=== PATIENT | female | born 1935 | race Caucasian/White ===

== ENCOUNTER 2016-06-02 11:23 | Emergency (ER) | payer MEDICARE, MEDICAID ==
[~2016-06-02] VITALS: Ht 154.9 cm; Wt 70.8 kg
[2016-06-02 11:43] LABS: BASOPHILS # (AUTO) 0.1 /CMM (0.0-0.2); BASOPHILS % (AUTO) 1.2 % (0.0-2.0); DIFF TOTAL % 100 %; EOSINOPHILS # (AUTO) 0.1 /CMM (0.0-0.7); EOSINOPHILS % (AUTO) 1.7 % (0.0-6.0); HEMATOCRIT 39 % (33-45); LYMPHOCYTES # (AUTO) 1.2 /CMM (0.8-4.8); LYMPHOCYTES % (AUTO) 18.9 % (20.0-44.0); MEAN CORPUSCULAR HEMOGLOBIN 30 PG (26.0-33.0); MEAN CORPUSCULAR HGB CONC 34 g/dl (31.0-36.0); MEAN CORPUSCULAR VOLUME 90 fL (82-100); MONOCYTES # (AUTO) 0.6 /CMM (0.1-1.30); MONOCYTES % (AUTO) 9.3 % (2.0-12.0); NEUTROPHILS # (AUTO) 4.5 /CMM (1.8-8.9); NEUTROPHILS % (AUTO) 68.9 % (43.0-81.0); PLATELET COUNT (AUTO) 180 /CMM (150-450); RED BLOOD CELL COUNT(AUTO) 4.32 MIL/uL (4.0-5.2); WHITE BLOOD COUNT (AUTO) 6.5 K/uL (4.3-11.0)
[2016-06-02 11:56] LABS: INR 0.91 (0.87-1.13); PROTHROMBIN TIME 9.8 SECS (9.5-12.7)
[2016-06-02 12:01] LABS: ANION GAP 14 (5-14); CALCIUM, SERUM 9.1 mg/dL (8.5-10.1); CARBON DIOXIDE 24 mmol/L (21-32); CHLORIDE 107 mmol/L (98-107); CREATININE 0.8 mg/dL (0.6-1.3); GLUCOSE 224 mg/dL (74-106); POTASSIUM 3.6 mmol/L (3.5-5.1); SODIUM SERUM 141 mmol/L (136-145); UREA NITROGEN, BLOOD 20 mg/dL (7-18)
[2016-06-02 12:08] LABS: ALANINE AMINOTRANSFERASE 23 U/L (12-78); ALBUMIN 3.5 g/dL (3.4-5.0); ASPARTATE AMINOTRANSFERASE 10 U/L (15-37); BILIRUBIN,DIRECT 0.1 mg/dL (0.0-0.2); BILIRUBIN,TOTAL 0.5 mg/dL (0.2-1.0); INDIRECT BILIRUBIN 0.4 mg/dL (0.0-1.1); TOTAL PROTEIN, SERUM 7.4 g/dL (6.4-8.2); TROPONIN I < 0.017 ng/mL (0.00-0.056)
[2016-06-02] MEDS ORDERED: BENAZEPRIL HCL 10 MG TABLET PO ONE (13:00)
[2016-06-02] MEDS ORDERED: IBUPROFEN 600 MG TABLET PO ONE ×2 (13:00→13:10)
[2016-06-02 13:15] VITALS: BP 158/83
== END 2016-06-02 13:16 | disposition home or self-care (01) ==
LOC: EDBD 11:25 → ER 11:25
DX: S20.219A Contusion of unspecified front wall of thorax, initial encounter (principal); S80.02XA Contusion of left knee, initial encounter; I10 Essential (primary) hypertension; E11.9 Type 2 diabetes mellitus without complications; W19.XXXA Unspecified fall, initial encounter; Y92.89 Other specified places as the place of occurrence of the external cause; Y93.89 Activity, other specified; Y99.8 Other external cause status
CPT/HCPCS: 36415; 71010; 72170; 80048; 80076; 84484; 85025; 85730; 93005; 99285; A4606; Z7610

== ENCOUNTER 2016-10-20 11:06 | Emergency (ER) | payer MEDICARE, MEDICAID ==
[~2016-10-20] VITALS: Ht 160 cm; Wt 63.5 kg
[2016-10-20 11:11] VITALS: BP 136/69
== END 2016-10-20 12:21 | disposition home or self-care (01) ==
LOC: ER 11:07
DX: R05 Cough (principal); I10 Essential (primary) hypertension; E11.9 Type 2 diabetes mellitus without complications; J45.909 Unspecified asthma, uncomplicated
CPT/HCPCS: 71020; 99284; A4606; Z7610

== ENCOUNTER 2019-05-16 21:44 | Emergency (ER) | payer MEDICARE, OTHER ==
[~2019-05-16] VITALS: Ht 157.5 cm; Wt 70.8 kg
--- NOTE | 2019-05-16 22:07 | NUR ---
PATIENT CAME TO ER BED 10 W/ DAUGHTER C/O RIGHT RIBCAGE PAIN AND RIGHT HIP PAIN S/P FALL IN RESTROOM AT HOME. PATIENT LIVES ALONE AND FELL IN THE RESTROOM AFTER FEELING DIZZY. PATIENT DENIES HITTING HER HEAD. NO BRUISING NOTED ON THE RIGHT SIDE OF RIBCAGE AND RIGHT HIP. PATIENT STATES PAIN WHEN BREATHING. AAOX4. NOT IN ANY ACUTE DISTRESS. BREATHING EVENLY AND UNLABORED. NO SOB. CONNECTED TO MONITOR.
[2019-05-16 22:25] LABS: BASOPHILS # (AUTO) 0.1 /CMM (0.0-0.2); EOSINOPHILS % (AUTO) 1.2 % (0.0-6.0); HEMATOCRIT 37 % (33-45); HEMOGLOBIN 12.5 g/dL (11.5-14.8); LYMPHOCYTES # (AUTO) 1.2 /CMM (0.8-4.8); LYMPHOCYTES % (AUTO) 15.7 % (20.0-44.0); MEAN CORPUSCULAR HGB CONC 33 g/dl (31.0-36.0); MEAN CORPUSCULAR VOLUME 93 fL (82-100); MONOCYTES # (AUTO) 0.4 /CMM (0.1-1.30); MONOCYTES % (AUTO) 5.1 % (2.0-12.0); NEUTROPHILS # (AUTO) 5.6 /CMM (1.8-8.9); PLATELET COUNT (AUTO) 147 /CMM (150-450); RED BLOOD CELL COUNT(AUTO) 4.04 MIL/uL (4.0-5.2); WHITE BLOOD COUNT (AUTO) 7.3 K/uL (4.3-11.0)
--- NOTE | 2019-05-16 22:27 | NUR ---
PATIENT GETTING TAKEN FOR XRAY
[2019-05-16] MEDS ORDERED: IV NS 0.9% 500 ML BAG IV ONE (22:30)
[2019-05-16 22:33] LABS: CALCIUM, SERUM 9.3 mg/dL (8.5-10.1); CARBON DIOXIDE 26 mmol/L (21-32); CHLORIDE 104 mmol/L (98-107); CREATININE 1.1 mg/dL (0.6-1.3); GLUCOSE 226 mg/dL (74-106); POTASSIUM 4.2 mmol/L (3.5-5.1); SODIUM SERUM 136 mmol/L (136-145); UREA NITROGEN, BLOOD 40 mg/dL (7-18)
[2019-05-16 22:40] LABS: ALANINE AMINOTRANSFERASE 35 U/L (12-78); ALBUMIN 3.6 g/dL (3.4-5.0); ALKALINE PHOSPHATASE 86 U/L (46-116); ASPARTATE AMINOTRANSFERASE 21 U/L (15-37); BILIRUBIN,DIRECT 0.1 mg/dL (0.0-0.2); BILIRUBIN,TOTAL 0.3 mg/dL (0.2-1.0); TOTAL PROTEIN, SERUM 7.3 g/dL (6.4-8.2)
--- NOTE | 2019-05-16 22:56 | NUR ---
PT RETURNED FROM XRAY.
[2019-05-16] MEDS ORDERED: TRAMADOL HCL 50 MG TABLET ONE (23:59)
[2019-05-17] MEDS ORDERED: TRAMADOL HCL 50 MG TABLET PO ONE
--- NOTE | 2019-05-17 00:10 | NUR ---
IV removed. Catheter intact and site benign. Pressure and 4x4 applied to site. No bleeding noted. Patient discharged to home in stable condition. Written and verbal after care instructions given. Patient verbalizes understanding of instruction.
--- NOTE | 2019-05-17 00:13 | NUR ---
DAUGHTER TAKING PATIENT HOME.
[2019-05-17 00:14] VITALS: BP 133/67
== END 2019-05-17 00:14 | disposition home or self-care (01) ==
LOC: ER 21:47
DX: S20.212A Contusion of left front wall of thorax, initial encounter (principal); S20.211A Contusion of right front wall of thorax, initial encounter; I10 Essential (primary) hypertension; J45.909 Unspecified asthma, uncomplicated; E78.5 Hyperlipidemia, unspecified; E11.9 Type 2 diabetes mellitus without complications; W18.39XA Other fall on same level, initial encounter; Y93.89 Activity, other specified; Y92.89 Other specified places as the place of occurrence of the external cause; Y99.8 Other external cause status
CPT/HCPCS: 36415; 71100; 73502; 80048; 80076; 82962; 84484; 85025; 93005; 99284; J7030

== ENCOUNTER 2019-05-19 15:26 | Inpatient (IN) | payer MEDICARE, MEDICAID ==
[~2019-05-19] VITALS: Ht 165.1 cm; Wt 67.7 kg
[2019-05-19 10:00] VITALS: BP 126/88
--- NOTE | 2019-05-19 15:43 | NUR ---
R sided body pain s/p glf this morning , PT AAOX4, -SOB, NAD NOTED, VSS ,PENDING MD BUCK
[2019-05-19] MEDS ORDERED: HYDROCODONE/APAP 5/325MG 1 EACH TABLET PO ONE (16:00)
[2019-05-19] MEDS ORDERED: HYDROCODONE/APAP 5/325MG 1 EACH TABLET ONE (16:24)
[2019-05-19] MEDS ORDERED: TOLT2CAP PO (17:02)
[2019-05-19] MEDS ORDERED: METO25TA6 PO (17:02)
[2019-05-19] MEDS ORDERED: OMEP1CAP4 PO (17:02)
[2019-05-19] MEDS ORDERED: CLON0.5T23 PO (17:02)
[2019-05-19] MEDS ORDERED: MECL-102 PO (17:02)
[2019-05-19] MEDS ORDERED: TRAM50TA2 PO (17:02)
[2019-05-19] MEDS ORDERED: ESCI10TA PO (17:02)
[2019-05-19] MEDS ORDERED: LOSA100T3 PO (17:02)
[2019-05-19] MEDS ORDERED: OLME1TAB34 PO (17:02)
[2019-05-19] MEDS ORDERED: RANI300C PO (17:02)
[2019-05-19] MEDS ORDERED: CLON0.1T14 PO (17:02)
[2019-05-19] MEDS ORDERED: LEVO50TA8 PO (17:02)
[2019-05-19] MEDS ORDERED: ROSU5TAB PO (17:02)
[2019-05-19] MEDS ORDERED: GLIP5TAB13 PO (17:02)
[2019-05-19 17:04] LABS: BASOPHILS # (AUTO) 0.1 /CMM (0.0-0.2); BASOPHILS % (AUTO) 0.7 % (0.0-2.0); EOSINOPHILS % (AUTO) 1.9 % (0.0-6.0); HEMATOCRIT 39 % (33-45); HEMOGLOBIN 12.9 g/dL (11.5-14.8); LYMPHOCYTES # (AUTO) 1.4 /CMM (0.8-4.8); LYMPHOCYTES % (AUTO) 14.8 % (20.0-44.0); MEAN CORPUSCULAR HGB CONC 33 g/dl (31.0-36.0); MEAN CORPUSCULAR VOLUME 93 fL (82-100); MONOCYTES # (AUTO) 0.7 /CMM (0.1-1.30); MONOCYTES % (AUTO) 7.7 % (2.0-12.0); NEUTROPHILS # (AUTO) 6.9 /CMM (1.8-8.9); NEUTROPHILS % (AUTO) 74.9 % (43.0-81.0); PLATELET COUNT (AUTO) 122 /CMM (150-450); RED BLOOD CELL COUNT(AUTO) 4.17 MIL/uL (4.0-5.2); WHITE BLOOD COUNT (AUTO) 9.2 K/uL (4.3-11.0)
[2019-05-19 17:11] LABS: CALCIUM, SERUM 9.5 mg/dL (8.5-10.1); CREATININE 0.9 mg/dL (0.6-1.3); POTASSIUM 3.8 mmol/L (3.5-5.1)
--- NOTE | 2019-05-19 18:45 | NUR ---
DX AMBULATORY DISFUNCTION
--- NOTE | 2019-05-19 19:15 | NUR ---
WAS ASKED FOR REPORT TO FINISHED BEFORE BEDS GIVEN.
--- NOTE | 2019-05-19 20:15 | NUR ---
BED ASSIGNMENT 312-1
--- NOTE | 2019-05-19 20:20 | NUR ---
report given to to morales for clary pt will be transported to 3rd floor
--- NOTE | 2019-05-19 20:49 | NUR ---
shane collected and sent to lab
--- NOTE | 2019-05-19 20:49 | NUR ---
pt tranposrted to 3rd floor
[2019-05-19 21:00] VITALS: BP_SYST 152; BP_DIAS 71; BP_DIAS 88
--- NOTE | 2019-05-19 21:00 | NUR ---
MS SEAT COVER INSTALLER NOTES Patient arrived onto to unit as med surg with ER staff. She is a/o x3, Japanese speaking knows a little Wolof. She is able to follow commands. No signs of acute distress noted and no current complaints of pain or discomfort. She was given [place] in the ER. Arrived on 2L of O2 via NC and still currently on it. She is bed rest due to right sided pain, able to use bed coppola. IV located on L AC #20 patent and intact. Safety precautions are in place with bed in lowest position, side rails up x2, breaks on, and call light within reach. All belongings were accounted for. Skin assessment was done. Patient was oriented to room. Will continue to monitor.
[2019-05-19] MEDS ORDERED: MAG HYDROX/AL HYDROX/SIMETH 30 ML UDC PO PRN (22:30)
[2019-05-19] MEDS ORDERED: ZOLPIDEM TARTRATE 5 MG TABLET PO PRN (22:30)
[2019-05-19] MEDS ORDERED: ONDANSETRON HCL/PF 4 MG/2 ML VIAL IVP PRN (22:30)
[2019-05-19] MEDS ORDERED: ACETAMINOPHEN 325 MG TABLET PO PRN (22:30)
[2019-05-19] MEDS ORDERED: MAGNESIUM HYDROXIDE 30 ML UDC PO PRN (22:30)
[2019-05-19] MEDS ORDERED: Z GUARD REMEDY 2 OZ OINT TP PRN (22:30)
[2019-05-19] MEDS ORDERED: MORPHINE SULFATE INJ 2 MG/ML DISP.SYRIN IV PRN (22:30)
[2019-05-19] MEDS ORDERED: TRAMADOL HCL 50 MG TABLET PO PRN (23:00)
[2019-05-19] MEDS: ENOXAPARIN SODIUM 40 MG/0.4 ML DISP.SYRIN SQ SCH (23:14)
[2019-05-20] MEDS: IV D5/0.45 NACL 1,000 ML IV PRN ×2 (01:35→17:24)
--- NOTE | 2019-05-20 06:26 | NUR ---
MS RN CLOSING NOTES Patient is currently resting in bed A/O x3, Albanian speaking. She is able to follow commands. On 2L of O2 via NC, breathing even and unlabored. No signs of acute distress noted. IV located on L AC #20 running D5 NS @ 75ml/ hr. Patient was kept clean and dry throughout the night, all needs met. Uses bed coppola. Safety precautions in place with bed in lowest position, locked, breaks on, and call light within reach. Will endorse to oncoming shift about MOUSTAPHA
[2019-05-20 06:47] LABS: BASOPHILS % (AUTO) 0.6 % (0.0-2.0); HEMATOCRIT 36 % (33-45); HEMOGLOBIN 12.4 g/dL (11.5-14.8); LYMPHOCYTES # (AUTO) 1.4 /CMM (0.8-4.8); LYMPHOCYTES % (AUTO) 22.1 % (20.0-44.0); MEAN CORPUSCULAR HGB CONC 34 g/dl (31.0-36.0); MEAN CORPUSCULAR VOLUME 91 fL (82-100); MONOCYTES # (AUTO) 0.6 /CMM (0.1-1.30); MONOCYTES % (AUTO) 9.8 % (2.0-12.0); NEUTROPHILS % (AUTO) 64.5 % (43.0-81.0); PLATELET COUNT (AUTO) 131 /CMM (150-450); WHITE BLOOD COUNT (AUTO) 6.2 K/uL (4.3-11.0)
--- NOTE | 2019-05-20 07:10 | NUR ---
MS RN OPENING NOTES RECEIVED PATIENT IN BED ASLEEP, AROUSABLE TO VERBAL AND TACTILE STIMULI. HOB ELEVATED. NO SOB. ON O2 2L/MIN VIA NC CROW WELL. IV ACCESS SITE INTACT AND PATENT. DENIES ANY C/O PAIN NOR DISCOMFORT AT THIS TIME. BED IN LOWEST POSITION, LOCKED. BED ALARM ON.CALL LIGHT WITHIN REACH. BED SIDERAILS UP X2.
[2019-05-20 07:27] LABS: CALCIUM, SERUM 8.8 mg/dL (8.5-10.1); CREATININE 0.8 mg/dL (0.6-1.3); MAGNESIUM 1.4 mg/dL (1.8-2.4); PHOSPHORUS 3.6 mg/dL (2.5-4.9); POTASSIUM 2.9 mmol/L (3.5-5.1)
[2019-05-20 08:00] VITALS: BP 124/60
[2019-05-20] MEDS: glipiZIDE 5 MG TABLET PO SCH ×3 (08:18→17:22)
[2019-05-20] MEDS: LEVOTHYROXINE SODIUM 25 MCG TABLET PO SCH (08:18)
[2019-05-20] MEDS ORDERED: MECLIZINE HCL 25 MG TABLET PO PRN (09:00)
[2019-05-20] MEDS ORDERED: LOSARTAN POTASSIUM 50 MG TABLET PO SCH (09:00)
[2019-05-20] MEDS: ATORVASTATIN 10 MG TABLET PO SCH (09:05)
[2019-05-20] MEDS: LOSARTAN POTASSIUM 50 MG TABLET PO SCH ×2 (09:05→17:23)
[2019-05-20] MEDS: ESCITALOPRAM OXALATE (10 MG) 10 MG TABLET PO SCH (09:06)
[2019-05-20] MEDS: METOPROLOL TARTRATE 25 MG TABLET PO SCH ×2 (09:06→17:23)
[2019-05-20] MEDS: FAMOTIDINE (20 MG) 20 MG TABLET PO SCH (09:06)
[2019-05-20] MEDS: AMLODIPINE BESYLATE 5 MG TABLET PO SCH (09:10)
[2019-05-20] MEDS: TOLTERODINE 2 MG CAP.SR PO SCH (09:14)
[2019-05-20] MEDS: HYDROCHLOROTHIAZIDE 25 MG TABLET PO SCH (09:14)
[2019-05-20] MEDS: POTASSIUM CHLORIDE 20 MEQ TAB.PRT.SR PO SCH ×3 (10:13→12:55)
[2019-05-20] MEDS: Magnesium 1GM/D5W 100ML PREMIX 100 ML IV SCH ×2 (10:13→11:43)
[2019-05-20 16:00] VITALS: BP 139/79
--- NOTE | 2019-05-20 18:45 | NUR ---
MS RN CLOSING NOTES ALERT AND ORIENTED X1. HOB ELEVATED. NO S/S OF RESPIRATORY DISTRESS. ON ROOM AIR WITH 96% SPO2. LEFT AC # 20 INTACT AND PATENT INFUSING D5 1/2 NS @ 125 ML/HR. . DENIES ANY C/O PAIN NOR DISCOMFORT AT THIS TIME. BED IN LOWEST POSITION, LOCKED. BED ALARM ON.CALL LIGHT WITHIN REACH. BED SIDERAILS UP X2. IN NO APPARENT DISTRESS.
--- NOTE | 2019-05-20 19:20 | NUR ---
RN medsurmicaela opening notes Received Pt from morning nurse. Pt is alert and orientedX2. Pt speaks Polish and able to make needs known. Respiration is normal in room air. No SOB. No nausea and vomiting. Pt denies any pain or discomfort at this time. IV sites at LAC# 20 is clean, intact, patent and infusing well D5 1/2 NS @ 75 ml/hr. Keep HOB elevated. Keep Pt clean, dry, warm and comfortable. Instructed to call. Safety precautions is maintained. Bed at low position, brakes locked, side rails upx3 and call light is within reach. Will continue to monitor.
[2019-05-20 20:00] VITALS: BP 145/70
[2019-05-20 21:24] VITALS: BP 158/60
[2019-05-20] MEDS: clonazePAM 0.5 MG TABLET PO SCH (21:25)
[2019-05-20] MEDS: CLONIDINE HCL 0.1 MG TABLET PO SCH (21:26)
[2019-05-20] MEDS: ENOXAPARIN SODIUM 40 MG/0.4 ML DISP.SYRIN SQ SCH (21:40)
--- NOTE | 2019-05-21 04:00 | NUR ---
RN medsurg notes Pt accidentally removed IV sites on LAC# 20. Inserted new peripheral IV sites at L hand#24 with good blood returned. IV sites is patent, intact, patent and flush without resistance. Pt tolerated well. Will continue to monitor.
[2019-05-21 06:31] LABS: BASOPHILS % (AUTO) 0.7 % (0.0-2.0); EOSINOPHILS % (AUTO) 2.7 % (0.0-6.0); HEMATOCRIT 34 % (33-45); HEMOGLOBIN 11.7 g/dL (11.5-14.8); LYMPHOCYTES # (AUTO) 1.4 /CMM (0.8-4.8); LYMPHOCYTES % (AUTO) 21.3 % (20.0-44.0); MEAN CORPUSCULAR HGB CONC 34 g/dl (31.0-36.0); MEAN CORPUSCULAR VOLUME 92 fL (82-100); MONOCYTES # (AUTO) 0.7 /CMM (0.1-1.30); NEUTROPHILS # (AUTO) 4.1 /CMM (1.8-8.9); NEUTROPHILS % (AUTO) 64.3 % (43.0-81.0); PLATELET COUNT (AUTO) 140 /CMM (150-450); RED BLOOD CELL COUNT(AUTO) 3.74 MIL/uL (4.0-5.2); WHITE BLOOD COUNT (AUTO) 6.4 K/uL (4.3-11.0)
[2019-05-21] MEDS: IV D5/0.45 NACL 1,000 ML IV PRN ×2 (06:33→20:58)
--- NOTE | 2019-05-21 07:10 | NUR ---
MS RN NOTES RECEIVED PATIENT IN BED A/OX4 POLISH SPEAKER. NO COMPLAIN OF PAIN OR DISCOMFORT AT THIS TIME. BED LOCKED IN LOWEST POSITION , CALL LIGHT WITHIN REACH.WILL CONTINUE TO MONITOR.
--- NOTE | 2019-05-21 07:15 | NUR ---
RN medsurg closing notes Pt is resting in bed comfortably. Respiration is normal in room air. No SOB. No S/S of distress noted. IV sites at left hand # 22 is clean, intact and patent. Routine meds were given as ordered. Kept Pt clean, dry and comfortable. All needs met and attended. Safety precautions is maintained. Bed at low position, brakes locked, side rails upX3 and call light is within reach. Will endorse to morning nurse for MOUSTAPHA.
[2019-05-21 08:00] VITALS: BP 129/63
[2019-05-21] MEDS: PANTOPRAZOLE 40 MG TABLET.DR PO SCH (08:30)
[2019-05-21] MEDS: LEVOTHYROXINE SODIUM 25 MCG TABLET PO SCH (08:30)
[2019-05-21] MEDS: glipiZIDE 5 MG TABLET PO SCH ×3 (08:30→17:10)
[2019-05-21] MEDS: FAMOTIDINE (20 MG) 20 MG TABLET PO SCH (09:00)
[2019-05-21] MEDS: LOSARTAN POTASSIUM 50 MG TABLET PO SCH ×2 (10:32→17:10)
[2019-05-21] MEDS: ESCITALOPRAM OXALATE (10 MG) 10 MG TABLET PO SCH (10:32)
[2019-05-21] MEDS: HYDROCHLOROTHIAZIDE 25 MG TABLET PO SCH (10:33)
[2019-05-21] MEDS: AMLODIPINE BESYLATE 5 MG TABLET PO SCH (10:33)
[2019-05-21] MEDS: METOPROLOL TARTRATE 25 MG TABLET PO SCH ×2 (10:34→17:11)
[2019-05-21] MEDS: ATORVASTATIN 10 MG TABLET PO SCH (10:34)
[2019-05-21] MEDS: TOLTERODINE 2 MG CAP.SR PO SCH (10:34)
--- NOTE | 2019-05-21 10:42 | NUR ---
MS RN NOTES FAMOTIDINE WASTED PT REFUSED
[2019-05-21] MEDS: HYDROCODONE/APAP 5/325MG 1 EACH TABLET PO PRN ×2 (14:00→22:18)
[2019-05-21 16:00] VITALS: BP 136/61
--- NOTE | 2019-05-21 19:45 | NUR ---
MS RN OPENING NOTES RECEIVED PATIENT FROM MORNING SHIFT, ALERT AND ORIENTED X 2-3. VERBALLY RESPONSIVE MALAGASY SPEAKING AND ABLE TO FOLLOW DIRECTIONS. BREATHING REGULAR AND UNLABORED ON ROOM AIR. LEFT HAND G24 IV LINE INTACT AND PATENT, INFUSING WELL WITH NO BLEEDING OR S/S OF INFILTRATION/INFECTION NOTED. NO COMPLAINTS OF PAIN/DISCOMFORT REPORTED OF THE TIME. BED LOW AND LOCKED ON SEMI FOWLERS POSITION. CALL LIGHT IN REACH. BED ALARM ON. WILL CONTINUE TO MONITOR.
--- NOTE | 2019-05-21 19:49 | NUR ---
MS RN NOTES PATIENT IN BED NO COMPLAIN OF PAIN OR DISCOMFORT AT THIS TIME. ALL NEEDS ATTENDED, MEDS GIVEN INCLUDING PAIN MEDS. BED LOCKED IN LOWEST POSITION , CALL LIGHT WITHIN REACH.ENDORSED TO NEWSPAPER STUFFER NURSE FOR MOUSTAPHA.
[2019-05-21 20:40] VITALS: BP 140/66
[2019-05-21 20:48] VITALS: BP 140/66
[2019-05-21] MEDS: clonazePAM 0.5 MG TABLET PO SCH (21:39)
[2019-05-21] MEDS: CLONIDINE HCL 0.1 MG TABLET PO SCH (21:39)
[2019-05-21] MEDS: ENOXAPARIN SODIUM 40 MG/0.4 ML DISP.SYRIN SQ SCH (21:42)
--- NOTE | 2019-05-21 22:20 | NUR ---
MS RN NOTES COMPLAINED OF 6/10 RIGHT RIB PAIN; NORCO 5/325 GIVEN BY MOUTH. NON-PHARMACOLOGICAL INTERVENTIONS PROVIDED.
--- NOTE | 2019-05-22 06:30 | NUR ---
MS RN CLOSING NOTES PATIENT IN BED, ALERT AND ORIENTED X 2-3. VERBALLY RESPONSIVE COMORAN SPEAKING AND ABLE TO FOLLOW DIRECTIONS. BREATHING REGULAR AND UNLABORED ON OXYGEN AT 2L/min VIA NASAL CANNULA. LEFT HAND G24 IV LINE INTACT AND INFUSING WELL. NO COMPLAINTS OF PAIN/DISCOMFORT REPORTED OF THE TIME. BED LOW AND LOCKED ON SEMI FOWLERS POSITION. CALL LIGHT IN REACH. BED ALARM ON. WILL ENDORSE TO MORNING SHIFT FOR MOUSTAPHA.
--- NOTE | 2019-05-22 07:11 | NUR ---
MS RN OPENING NOTES RECEIVED PATIENT AWAKE IN BED IN NO ACUTE SIGNS OF DISTRESS. A/O X2-3. BAHAMIAN SPEAKING, DENIES PAIN OR ANY DISCOMFORTS AT THIS TIME. ON O2 2L/MIN VIA N/C TOLERATING WELL. IV ACCESS ON LEFT HAND G#24 INTACT AND PATENT, IVF OF D51/2 NS AT 75ML/HR INFUSING WELL, NO S/S OF INFILTRATIONS NOTED. SAFETY MEASURES IN PLACE: BED IN LOWEST POSITION, LOCKED. BED ALARM ON.CALL LIGHT WITHIN REACH. BED SIDE-RAILS UP X2. WILL CONTINUE TO MONITOR PY ACCORDINGLY.
[2019-05-22 07:28] LABS: BASOPHILS % (AUTO) 0.5 % (0.0-2.0); EOSINOPHILS % (AUTO) 3.3 % (0.0-6.0); HEMATOCRIT 33 % (33-45); HEMOGLOBIN 11.3 g/dL (11.5-14.8); LYMPHOCYTES # (AUTO) 1.3 /CMM (0.8-4.8); LYMPHOCYTES % (AUTO) 27.4 % (20.0-44.0); MEAN CORPUSCULAR HGB CONC 34 g/dl (31.0-36.0); MEAN CORPUSCULAR VOLUME 91 fL (82-100); MONOCYTES # (AUTO) 0.5 /CMM (0.1-1.30); MONOCYTES % (AUTO) 10.5 % (2.0-12.0); NEUTROPHILS # (AUTO) 2.8 /CMM (1.8-8.9); NEUTROPHILS % (AUTO) 58.3 % (43.0-81.0); PLATELET COUNT (AUTO) 134 /CMM (150-450); RED BLOOD CELL COUNT(AUTO) 3.64 MIL/uL (4.0-5.2); WHITE BLOOD COUNT (AUTO) 4.7 K/uL (4.3-11.0)
[2019-05-22] MEDS: LEVOTHYROXINE SODIUM 25 MCG TABLET PO SCH (07:31)
[2019-05-22] MEDS: PANTOPRAZOLE 40 MG TABLET.DR PO SCH (07:31)
[2019-05-22] MEDS: glipiZIDE 5 MG TABLET PO SCH ×2 (07:31→13:11)
[2019-05-22 07:42] LABS: CALCIUM, SERUM 8.3 mg/dL (8.5-10.1); POTASSIUM 3.7 mmol/L (3.5-5.1)
[2019-05-22 08:00] VITALS: BP 132/72
[2019-05-22] MEDS: TOLTERODINE 2 MG CAP.SR PO SCH (08:18)
[2019-05-22] MEDS: ESCITALOPRAM OXALATE (10 MG) 10 MG TABLET PO SCH (08:18)
[2019-05-22] MEDS: FAMOTIDINE (20 MG) 20 MG TABLET PO SCH (08:18)
[2019-05-22] MEDS: LOSARTAN POTASSIUM 50 MG TABLET PO SCH ×2 (08:19→16:16)
[2019-05-22] MEDS: HYDROCHLOROTHIAZIDE 25 MG TABLET PO SCH (08:19)
[2019-05-22] MEDS: METOPROLOL TARTRATE 25 MG TABLET PO SCH ×2 (08:20→16:16)
[2019-05-22] MEDS: AMLODIPINE BESYLATE 5 MG TABLET PO SCH (08:20)
[2019-05-22] MEDS: ATORVASTATIN 10 MG TABLET PO SCH (08:20)
--- NOTE | 2019-05-22 14:54 | NUR ---
RN NOTES PT FOR DISCHARGE TO [facility] THIS AFTERNOON, PICK-UP TIME IS 1600. CALLED AND REPORT GIVEN TO STEFAN BAOTENG.
[2019-05-22 16:00] VITALS: BP 128/77
[2019-05-22 16:16] VITALS: BP 128/77
--- NOTE | 2019-05-22 17:07 | NUR ---
RN DISCHARGED NOTES PT DISCHARGED TO [facility] IN STABLE CONDITION. A/O X3. KITTITIAN SPEAKING AND ABLE TO MAKE NEEDS KNOWN. ALL NEEDS ATTENDED WELL. V/S TAKEN AND RECORDED. PT'S SKIN IS INTACT. IV ACCESS ON LEFT HAND g #24 REMOVED WITH NO BLEEDING NOTED, DRY DRESSING APPLIED TO SITE. HEALTH TEACHINGS GIVEN TO PT AND VERBALIZED UNDERSTANDING. REPORT/ DISCHARGE INSTRUCTIONS GIVEN TO STEFAN BOATENG OF [facility]. PT LEFT UNIT AT 1705 VIA GURNEY ACCOMPANIED BY 2 ESOL INSTRUCTOR. MD AND CHARGE NURSE AWARE OF DISCHARGE.
== END 2019-05-22 17:26 | DRG 206 ==
LOC: ER 15:28 → MED 20:38
PROVIDERS: ADMIT Hospitalist; ATTEND Family Medicine
DX: S22.31XA Fracture of one rib, right side, initial encounter for closed fracture (principal); R53.1 Weakness; I10 Essential (primary) hypertension; E78.5 Hyperlipidemia, unspecified; E11.9 Type 2 diabetes mellitus without complications; E03.9 Hypothyroidism, unspecified; J45.909 Unspecified asthma, uncomplicated; M16.11 Unilateral primary osteoarthritis, right hip; K40.90 Unilateral inguinal hernia, without obstruction or gangrene, not specified as recurrent; Z79.899 Other long term (current) drug therapy; Z86.73 Personal history of transient ischemic attack (TIA), and cerebral infarction without residual deficits; Z79.84 Long term (current) use of oral hypoglycemic drugs; W18.30XA Fall on same level, unspecified, initial encounter; Z91.81 History of falling; Y92.009 Unspecified place in unspecified non-institutional (private) residence as the place of occurrence of the external cause; S09.90XA Unspecified injury of head, initial encounter; M51.36 Other intervertebral disc degeneration, lumbar region; Z79.890 Hormone replacement therapy
CPT/HCPCS: 36415; 70450-TC; 71045-TC; 71100-TC; 73502; 73700-TC; 80048-TC; 80061-TC; 80076-TC; 82962-TC; 83735-TC; 84100-TC; 84484-TC; 85025-TC; 87081-TC; 97110-TC; 97112-TC; 97116-TC; 97530-TC; G0378; J1650; J3475; J3490; J7030; J7042

== ENCOUNTER 2019-06-30 22:31 | Emergency (ER) | payer MEDICARE, OTHER ==
[~2019-06-30] VITALS: Ht 162.6 cm; Wt 63.5 kg
[~2019-06-30 22:31] MED LIST: CLON0.1T14 PO; CLON0.5T23 PO; ESCI10TA PO; GLIP5TAB13 PO; LEVO50TA8 PO; LOSA100T3 PO; MECL-159 PO; METO25TA6 PO; OLME1TAB34 PO; OMEP1CAP4 PO; RANI300C PO; ROSU5TAB PO; TOLT2CAP PO; TRAM50TA2 PO
[2019-06-30 23:08] VITALS: BP 157/73
== END 2019-06-30 23:36 | disposition home or self-care (01) ==
LOC: ER 22:32
DX: J06.9 Acute upper respiratory infection, unspecified (principal); I10 Essential (primary) hypertension; J45.909 Unspecified asthma, uncomplicated; E78.5 Hyperlipidemia, unspecified; K21.9 Gastro-esophageal reflux disease without esophagitis; E11.9 Type 2 diabetes mellitus without complications; Z79.899 Other long term (current) drug therapy; Z79.84 Long term (current) use of oral hypoglycemic drugs